=== PATIENT | male | born 1960 | race Caucasian/White ===

== ENCOUNTER → 2016-08-18 | Outpatient (CLI) | payer OTHER | LOC: KOH-I 08-12 12:45 | DX: M25.561 Pain in right knee (principal); M25.562 Pain in left knee; M76.51 Patellar tendinitis, right knee; M85.40 Solitary bone cyst, unspecified site; M25.461 Effusion, right knee; R60.0 Localized edema; S83.242A Other tear of medial meniscus, current injury, left knee, initial encounter; S83.241A Other tear of medial meniscus, current injury, right knee, initial encounter; M71.22 Synovial cyst of popliteal space [Baker], left knee | CPT/HCPCS: 73721 ==

== ENCOUNTER → 2020-12-31 | Outpatient (CLI) | payer OTHER ==
[~2020-12-31] MED LIST: ADMELOG SO100 UNIT/1 SQ; AMOXICILLIN500 MG PO; BALANCE OF NATURE PO; CELEBREX200 MG PO; CENTRUM SILVER1 EAC1 PO; CYMBALTA60 MG PO; DEXCOM G61 EAC2 MC; ELIQUIS 5 MG TAB5 MG PO; ELIQUIS2.5 MG PO; IBUPROFEN800 MG PO; IPRAT-ALBUT 0.5-3 ML INH; LISINOPRIL10 MG PO; LO-DOSE ASPIRIN81 MG PO; LOPRESSOR 25 MG25 MG PO; LOPRESSOR50 MG PO; NEURONTIN800 MG PO; OMEPRAZOLE20 M1 PO; OXYCODONE HCL10 MG PO; OZEMPIC1 MG/0.71 SQ; ROXICODONE15 MG PO; ROXICODONE5 MG PO; TESSALON PERLE100 MG PO; TOUJEO MAX300 UNIT/1 SQ; VANCOMYCIN1.25 GM/12 IV; VENTOLIN HFA 66.7 GM INH; XYZAL5 MG PO; ZANAFLEX4 M1 PO
[2020-12-31 09:10] LABS: HEMOGLOBIN 16.5 gm/dl (14.0-17.5); RED BLOOD COUNT 5.74 M/UL (4.20-5.50); WHITE BLOOD COUNT 11.5 K/UL (4.5-11.0)
[2020-12-31 09:31] LABS: BUN/CREATININE RATIO 14 (0-10)
== END ==
LOC: OPSV2 12-30 10:30 → EDSTATUS 08:30
PROVIDERS: Orthopaedic Surgery
DX: Z01.818 Encounter for other preprocedural examination (principal); M17.11 Unilateral primary osteoarthritis, right knee; R94.31 Abnormal electrocardiogram [ECG] [EKG]
CPT/HCPCS: 36415; 80048; 81001; 83036; 85025; 87081; 93005

== ENCOUNTER → 2021-01-11 | Outpatient (CLI) | payer OTHER ==
[2021-01-11 13:07] LABS: BUN/CREATININE RATIO 10 (0-10)
== END ==
LOC: LAB 11:16
PROVIDERS: Orthopaedic Surgery
DX: Z01.812 Encounter for preprocedural laboratory examination (principal)
CPT/HCPCS: 36415; 80048; 86850; 86900; 86901

== ENCOUNTER 2021-01-12 06:35 | Inpatient (IN) | payer OTHER ==
[~2021-01-12] VITALS: Ht 182.9 cm; Wt 163.3 kg
[~2021-01-12 06:35] MED LIST changes: -ADMELOG SO100 UNIT/1 SQ; -BALANCE OF NATURE PO; -CELEBREX200 MG PO; -CENTRUM SILVER1 EAC1 PO; -CYMBALTA60 MG PO; -DEXCOM G61 EAC2 MC; -ELIQUIS 5 MG TAB5 MG PO; -ELIQUIS2.5 MG PO; -LISINOPRIL10 MG PO; -LOPRESSOR50 MG PO; -NEURONTIN800 MG PO; -OMEPRAZOLE20 M1 PO; -OZEMPIC1 MG/0.71 SQ; -ROXICODONE15 MG PO; -ROXICODONE5 MG PO; -VANCOMYCIN1.25 GM/12 IV; -VENTOLIN HFA 66.7 GM INH; -ZANAFLEX4 M1 PO
[2021-01-12] MEDS ORDERED: CENTRUM SILVER1 EAC1 PO (07:33)
[2021-01-12] MEDS ORDERED: ROXICODONE15 MG PO (08:17)
[2021-01-12] MEDS ORDERED: ELIQUIS2.5 MG PO (08:17)
[2021-01-13 04:13] LABS: RED BLOOD COUNT 4.93 M/UL (4.20-5.50)
[2021-01-13 04:36] LABS: BUN/CREATININE RATIO 13 (0-10)
--- NOTE | 2021-01-13 19:24 | NUR ---
PATIENT ENCOURAGED HOURLY TO USE INCENTIVE SPIROMETER. PATIENT PARTICIPATED ONLY 50% OF THE TIME. EDUCATED PATIENT ABOUT IMPORTANCE OF I.S. TO PREVENT PNEUMONIA. PATIENT VERBALIZED UNDERSTANDING.
[2021-01-14 04:24] LABS: HEMOGLOBIN 13.4 gm/dl (14.0-17.5); RED BLOOD COUNT 4.75 M/UL (4.20-5.50); WHITE BLOOD COUNT 20.8 K/UL (4.5-11.0)
[2021-01-14 04:39] LABS: BUN/CREATININE RATIO 16 (0-10)
[2021-01-15 06:06] LABS: HEMOGLOBIN 11.9 gm/dl (14.0-17.5)
[2021-01-15 06:09] LABS: RED BLOOD COUNT 4.19 M/UL (4.20-5.50)
[2021-01-19] MEDS ORDERED: ELIQUIS 5 MG TAB5 MG PO (09:57)
[2021-01-19] MEDS ORDERED: NEURONTIN800 MG PO (09:57)
[2021-01-19] MEDS ORDERED: LOPRESSOR50 MG PO (09:58)
[2021-01-19] MEDS ORDERED: OMEPRAZOLE20 M1 PO (09:59)
[2021-01-19] MEDS ORDERED: OZEMPIC1 MG/0.71 SQ (10:00)
[2021-01-19] MEDS ORDERED: CYMBALTA60 MG PO (10:00)
[2021-01-19] MEDS ORDERED: LISINOPRIL10 MG PO (10:01)
[2021-01-19] MEDS ORDERED: ADMELOG SO100 UNIT/1 SQ (10:02)
[2021-01-19] MEDS ORDERED: ZANAFLEX4 M1 PO (10:03)
== END 2021-01-15 12:36 | disposition home health service (06) | DRG 470 ==
LOC: OR 06:35 → M/S 14:22
PROVIDERS: Internal Medicine Infectious Disease; ADMIT Orthopaedic Surgery
PROC: 0SRC0J9 Replacement of Right Knee Joint with Synthetic Substitute, Cemented, Open Approach (ICD-10-PCS; principal; 2021-01-12 08:15)
DX: M17.11 Unilateral primary osteoarthritis, right knee (principal); Z68.41 Body mass index [BMI] 40.0-44.9, adult; E87.1 Hypo-osmolality and hyponatremia; E11.40 Type 2 diabetes mellitus with diabetic neuropathy, unspecified; I10 Essential (primary) hypertension; J44.9 Chronic obstructive pulmonary disease, unspecified; K21.9 Gastro-esophageal reflux disease without esophagitis; E66.01 Morbid (severe) obesity due to excess calories; F41.9 Anxiety disorder, unspecified; F32.9 Major depressive disorder, single episode, unspecified; G89.29 Other chronic pain; I48.0 Paroxysmal atrial fibrillation; Z87.891 Personal history of nicotine dependence; Z90.89 Acquired absence of other organs; Z79.4 Long term (current) use of insulin; Z79.01 Long term (current) use of anticoagulants; Z79.82 Long term (current) use of aspirin; Z82.3 Family history of stroke; Z79.899 Other long term (current) drug therapy; Z82.49 Family history of ischemic heart disease and other diseases of the circulatory system; Z83.3 Family history of diabetes mellitus
CPT/HCPCS: 36415; 36600; 73560; 80048; 80053; 82803; 82962; 83735; 84443; 85027; 86850; 86900; 86901; 97110; 97110-GP-CQ; 97116-GP-CQ; 97162; 97166; 97530; 97530-GP-CQ; C1776; J0690; J2001; J2250; J2270; J2370; J2405; J2704; J2795; J3010; J3370; J7030; J7120

== ENCOUNTER 2021-01-19 11:48 | Inpatient (IN) | payer OTHER ==
[~2021-01-19] VITALS: Ht 182.9 cm; Wt 158.3 kg
[~2021-01-19 11:48] MED LIST changes: +ADMELOG SO100 UNIT/1 SQ; +CENTRUM SILVER1 EAC1 PO; +CYMBALTA60 MG PO; +ELIQUIS 5 MG TAB5 MG PO; +ELIQUIS2.5 MG PO; +LISINOPRIL10 MG PO; +LOPRESSOR50 MG PO; +NEURONTIN800 MG PO; +OMEPRAZOLE20 M1 PO; +OZEMPIC1 MG/0.71 SQ; +ROXICODONE15 MG PO; +ZANAFLEX4 M1 PO
[2021-01-19 12:48] LABS: HEMOGLOBIN 12.1 gm/dl (14.0-17.5); RED BLOOD COUNT 4.26 M/UL (4.20-5.50); WHITE BLOOD COUNT 15.4 K/UL (4.5-11.0)
[2021-01-19 13:21] LABS: BUN/CREATININE RATIO 16 (0-10)
[2021-01-19] MEDS ORDERED: ROXICODONE5 MG PO (16:24)
[2021-01-19] MEDS ORDERED: DEXCOM G61 EAC2 MC (16:24)
[2021-01-19] MEDS ORDERED: VENTOLIN HFA 66.7 GM INH (16:25)
[2021-01-19] MEDS ORDERED: BALANCE OF NATURE PO (16:25)
[2021-01-19] MEDS ORDERED: CELEBREX200 MG PO (16:26)
[2021-01-20 04:33] LABS: BUN/CREATININE RATIO 19 (0-10)
[2021-01-20 04:36] LABS: RED BLOOD COUNT 4.09 M/UL (4.20-5.50); WHITE BLOOD COUNT 13.9 K/UL (4.5-11.0)
[2021-01-21 05:15] LABS: HEMOGLOBIN 11.8 gm/dl (14.0-17.5); RED BLOOD COUNT 4.12 M/UL (4.20-5.50)
[2021-01-21 05:49] LABS: BUN/CREATININE RATIO 15 (0-10)
[2021-01-21] MEDS ORDERED: ROXICODONE15 MG PO (16:26)
[2021-01-22 03:24] LABS: HEMOGLOBIN 11.9 gm/dl (14.0-17.5); RED BLOOD COUNT 4.14 M/UL (4.20-5.50); WHITE BLOOD COUNT 13.1 K/UL (4.5-11.0)
[2021-01-22 04:08] LABS: BUN/CREATININE RATIO 18 (0-10)
[2021-01-22] MEDS ORDERED: VANCOMYCIN1.25 GM/12 IV (15:44)
--- NOTE | 2021-01-22 16:53 | NUR ---
01/22/21 0980 REPORT CALLED TO ALEX AT [facility] [phone]
== END 2021-01-22 19:00 | disposition home health service (06) | DRG 908 ==
LOC: ER1 11:48 → CDU 15:33 → MED SURG 4 01-20 19:21
PROVIDERS: Orthopaedic Surgery; Physician Assistant; ADMIT Internal Medicine
PROC: 0SCC0ZZ Extirpation of Matter from Right Knee Joint, Open Approach (ICD-10-PCS; principal; 2021-01-21 15:18)
DX: M96.840 Postprocedural hematoma of a musculoskeletal structure following a musculoskeletal system procedure (principal); T81.40XA Infection following a procedure, unspecified, initial encounter; L03.115 Cellulitis of right lower limb; E87.1 Hypo-osmolality and hyponatremia; Y83.9 Surgical procedure, unspecified as the cause of abnormal reaction of the patient, or of later complication, without mention of misadventure at the time of the procedure; Z96.651 Presence of right artificial knee joint; E11.9 Type 2 diabetes mellitus without complications; E66.01 Morbid (severe) obesity due to excess calories; J44.9 Chronic obstructive pulmonary disease, unspecified; I10 Essential (primary) hypertension; I48.0 Paroxysmal atrial fibrillation; Z79.01 Long term (current) use of anticoagulants; Z87.891 Personal history of nicotine dependence; Z79.82 Long term (current) use of aspirin; Z90.89 Acquired absence of other organs; Z98.890 Other specified postprocedural states; Z82.49 Family history of ischemic heart disease and other diseases of the circulatory system; Z83.3 Family history of diabetes mellitus
CPT/HCPCS: 36415; 71045; 80053; 80202; 82962; 83605; 83735; 85025; 85652; 86140; 87040; 87070; 87205; 93971; 97163; 97165; 99285; C1751; J0692; J1100; J1885; J2001; J2250; J2270; J2405; J2704; J3010; J3370; J7030; J7070; J7120; U0002